=== PATIENT | male | born 1970 | race Two or more races ===

== ENCOUNTER 2017-03-01 07:52 | Emergency (ER) | payer OTHER ==
[2017-03-01] MEDS ORDERED: FLOXIN10 M1 OT (08:16)
[2017-03-01] MEDS ORDERED: CIPRO500 M2 PO (08:16)
== END 2017-03-01 08:30 ==
LOC: EDMED 07:52
DX: H60.91 Unspecified otitis externa, right ear (principal); Z88.0 Allergy status to penicillin; Z88.8 Allergy status to other drugs, medicaments and biological substances